=== PATIENT | female | born 1980 ===

== ENCOUNTER 2024-08-03 06:00 | Day surgery (SDC) | payer OTHER ==
[2024-07-29 12:14] LABS: URINE APPEARANCE Clear; URINE BILIRRUBIN Negative (NEGATIVE); URINE BLOOD Negative; URINE COLOR Yellow; URINE GLUCOSE Negative (NEGATIVE); URINE KETONE Trace (NEGATIVE); URINE LEUKOCYTE Negative; URINE NITRATE Negative; URINE PROTEIN Negative (NEGATIVE); URINE UROBILINOGEN 0.2 E.U./dl
[2024-07-29 12:15] LABS: URINE BACTERIA 1259.9 uL (0.0-1933); URINE RBC 10.3 uL (0.0-20.8); URINE WBC 13.9 uL (0.0-23.2)
[2024-07-29 12:19] LABS: URINE CAST 0.15 uL (0.0-1.40)
[2024-07-29 12:30] LABS: HEMATOCRIT 37.4 % (36.0-45.00); HEMOGLOBIN 12.3 g/dL (12.0-15.00); MEAN CELL VOLUME 83.4 fL (80.00-100.00); MEAN CORPUSCULAR HEMOGLOBIN 27.5 pg (27.00-32.0); PLATELET COUNT 218 K/uL (150-450); RED BLOOD COUNT 4.49 M/uL (4.00-6.00); RED CELL DISTRIBUTION WIDTH 13.4 % (11.5-14.5)
[2024-07-29 12:39] LABS: INR 0.98; PARTIAL THROMBOPLASTIN TIME 32.5 SECONDS (22.0-34.0); PROTHROMBIN TIME 10.7 SECONDS (9.0-11.5)
[2024-07-29 12:58] VITALS: BP 104/66
[2024-07-29 13:55] LABS: CALCIUM 8.9 mg/dL (8.5-10.1); CREATININE SERUM 0.69 mg/dL (0.55-1.02); GFR 93.3; POTASSIUM 4.11 mEq/L (3.5-5.1)
[~2024-08-03] VITALS: Ht 157.5 cm; Wt 68.0 kg
[~2024-08-03 06:00] MED LIST: ZYRTEC10 M3 PO
[2024-08-03] MEDS ORDERED: METRONIDAZOLE/SODIUM CHLORIDE 500 MG/100 ML PIGGYBACK IV ONE (11:30)
[2024-08-03] MEDS ORDERED: BUPIVACAINE HCL 30 ML VIAL IJ ONE (11:30)
[2024-08-03] MEDS ORDERED: CEFTRIAXONE SODIUM 2,000 MG VIAL IV ONE (11:30)
[2024-08-03] MEDS ORDERED: CELEBREX200MG PO (11:50)
[2024-08-03] MEDS ORDERED: LEVOFLOXACIN500 MG PO (11:53)
[2024-08-03] MEDS ORDERED: MORPHINE SULFATE 4 MG/ML VIAL IV ONE (12:20)
== END 2024-08-03 14:05 | disposition home or self-care (01) ==
LOC: CIR.AMB 06:00
PROVIDERS: ATTEND Surgery
DX: S30.851A Superficial foreign body of abdominal wall, initial encounter (principal); Z18.9 Retained foreign body fragments, unspecified material